=== PATIENT | female | born 1970 | race Two or more races ===

== ENCOUNTER 2019-06-08 17:19 | Emergency (ER) | payer SELFPAY ==
[~2019-06-08] VITALS: Ht 165.1 cm; Wt 85.0 kg
[2019-06-08] MEDS ORDERED: IBUPROFEN 600MG TABLET PO ONE (21:00)
[2019-06-08] MEDS ORDERED: LIDOCAINE HCL/PF 1% 10 MG/ML 5ML VIAL IJ ONE (21:00)
[2019-06-08 22:10] VITALS: BP 154/74
== END 2019-06-08 22:14 | disposition home or self-care (01) ==
LOC: ER 17:19
DX: L70.0 Acne vulgaris (principal); Z88.0 Allergy status to penicillin
CPT/HCPCS: 87804; 99283; J3490

== ENCOUNTER 2019-06-11 14:44 | Emergency (ER) | payer MEDICAID ==
[~2019-06-11] VITALS: Ht 167.6 cm; Wt 80.0 kg
[2019-06-11] MEDS ORDERED: LIDOCAINE 1%/EPI 1:100,000 10 ML VIAL IJ ONE (16:15)
[2019-06-11] MEDS ORDERED: BACITRACIN ZINC OINT UDPKT TOP ONE (16:15)
[2019-06-11] MEDS ORDERED: LIDOCAINE HCL/EPINEPHRINE 1%-EPI 1:100,000 20 ML VIAL INFIL ONE (16:15)
[2019-06-11 19:04] VITALS: BP 140/69
== END 2019-06-11 19:10 | disposition home or self-care (01) ==
LOC: ER 14:44
DX: L72.3 Sebaceous cyst (principal); L02.91 Cutaneous abscess, unspecified; Z88.0 Allergy status to penicillin
CPT/HCPCS: 99283; J3490; 99282